=== PATIENT | male | born 2000 | race Caucasian/White ===

== ENCOUNTER → 2019-02-02 08:26 | Outpatient (CLI) | payer OTHER, BC, SELFPAY ==
--- NOTE | 2019-02-02 | DI.US.S_ITS ---
PROCEDURE: US SCROTUM INDICATIONS: RT TEST LUMP TECHNIQUE: Real-time scanning was performed of the scrotum and testicles, with image documentation. Color and pulse Doppler interrogation was performed of both testicles. COMPARISON: None. FINDINGS: Right: Testicle is normal in size at 5.1 x 2.3 x 3.1 cm, and homogenous in echotexture. Epididymis is normal in overall size and morphology. Trace hydrocele. Present varicoceles. Overlying scrotal skin is normal in thickness. No abnormality identified in the region of the palpable abnormality which appears to correspond to the right epididymis. Left: Testicle is normal in size at 4.5 x 2.3 x 3.2 cm, and homogeneous in echotexture. Epididymis is normal in overall size and morphology. Trace hydrocele. Present varicoceles. Overlying scrotal skin is normal in thickness. Doppler: Color and pulse Doppler demonstrate normal and symmetric arterial flow in both testicles. IMPRESSION: 1. No suspicious abnormality in the region of the right epididymis which corresponds to the patient reported palpable abnormality. 2. No testicular mass or testicular torsion. 3. Bilateral varicoceles and trace hydroceles. Dictated by: Isael Sherwood M.D. on 02/02/2019 at 9:51 Approved by: Isael Sherwood M.D. on 02/02/2019 at 9:58
== END ==
PROVIDERS: Visit Provider Urology
DX: N50.9 Disorder of male genital organs, unspecified (principal); I86.1 Scrotal varices
CPT/HCPCS: 76870